=== PATIENT | male | born 1945 | race Caucasian/White ===

== ENCOUNTER → 2017-10-18 | Outpatient (CLI) | payer OTHER ==
[~2017-10-18] MED LIST: AMIT25TA9 PO; ASPI81TA40 PO; ATEN25TA PO; ATOR40TA71 PO; BACL10TA PO; FISH1CAP50 PO; HYDR25TA PO; LISI-613 PO; PSYL1PAC11 PO; TRAM50TA2 PO
== END | disposition home or self-care (01) ==
LOC: OIH 11:12
PROVIDERS: ATTEND Internal Medicine
DX: S60.221A Contusion of right hand, initial encounter (principal); X58.XXXA Exposure to other specified factors, initial encounter; Y93.89 Activity, other specified; Y92.89 Other specified places as the place of occurrence of the external cause; Y99.8 Other external cause status
CPT/HCPCS: 73130

== ENCOUNTER → 2018-03-07 | Outpatient (CLI) | payer OTHER ==
[~2018-03-07] MED LIST changes: +GADOBENATE DIMEGLUMINE 20 ML IV ONE
== END | disposition home or self-care (01) ==
LOC: RAH 08:31
PROVIDERS: ATTEND Podiatrist
DX: S86.112A Strain of other muscle(s) and tendon(s) of posterior muscle group at lower leg level, left leg, initial encounter (principal); M76.822 Posterior tibial tendinitis, left leg; X58.XXXA Exposure to other specified factors, initial encounter; Y93.89 Activity, other specified; Y92.89 Other specified places as the place of occurrence of the external cause; Y99.8 Other external cause status
CPT/HCPCS: 73723; A9577

== ENCOUNTER → 2018-07-30 | Outpatient (CLI) | payer OTHER ==
[~2018-07-30] MED LIST changes: -GADOBENATE DIMEGLUMINE 20 ML IV ONE
== END | disposition home or self-care (01) ==
LOC: RAH 14:50
PROVIDERS: ATTEND Internal Medicine
DX: Z01.818 Encounter for other preprocedural examination (principal)
CPT/HCPCS: 71046

== ENCOUNTER → 2018-09-04 | Outpatient (CLI) | payer OTHER | END | disposition home or self-care (01) | LOC: RAH 09:37 | PROVIDERS: ATTEND Podiatrist | DX: M87.375 Other secondary osteonecrosis, left foot (principal) | CPT/HCPCS: 73610 ==

== ENCOUNTER → 2018-10-28 | Outpatient (CLI) | payer OTHER | END | disposition home or self-care (01) | LOC: RAH 14:55 | PROVIDERS: ATTEND Internal Medicine | DX: M17.11 Unilateral primary osteoarthritis, right knee (principal); M85.88 Other specified disorders of bone density and structure, other site | CPT/HCPCS: 73562 ==

== ENCOUNTER → 2018-11-06 | Outpatient (CLI) | payer OTHER | END | disposition home or self-care (01) | LOC: RAH 15:18 | PROVIDERS: ATTEND Podiatrist | DX: M25.472 Effusion, left ankle (principal); M87.375 Other secondary osteonecrosis, left foot | CPT/HCPCS: 73610 ==

== ENCOUNTER 2020-02-24 07:48 | Observation (INO) | payer OTHER ==
[~2020-02-24] VITALS: Ht 182.9 cm; Wt 113.4 kg
[2020-02-24] MEDS ORDERED: ASPIRIN 81MG TAB.CHEW ONE (08:03)
[2020-02-24 08:19] LABS: EOSINOPHILS % (AUTO) 2.6 % (0.0-8.0); HEMATOCRIT 43.4 % (42-54); LYMPHOCYTES % (AUTO) 26.8 % (21.0-51.0); MEAN CORPUSCULAR HEMOGLOBIN 30.1 pg (27.0-33.0); MEAN CORPUSCULAR HGB CONC 34.1 g/dL (32.0-36.0); MEAN CORPUSCULAR VOLUME 88.2 fL (79-99); MONOCYTES % (AUTO) 8.2 % (3.0-13.0); NEUTROPHILS % (AUTO) 60.7 % (40.0-77.0); PLATELET COUNT (AUTO) 255 K/uL (130-400); RED BLOOD CELL COUNT(AUTO) 4.92 MIL/uL (4.50-6.20); RED CELL DISTRIBUTION WIDTH 13.2 % (11.0-15.5); WHITE BLOOD COUNT (AUTO) 9.1 K/uL (4.8-10.8)
[2020-02-24 08:31] LABS: CREATININE 0.9 mg/dL (0.5-1.5); POTASSIUM 4.8 mmol/L (3.5-5.1)
[2020-02-24 08:32] LABS: INR 0.96 (0.85-1.15); PARTIAL THROMBOPLASTIN TIME 26.4 SEC (26.3-35.5); PROTHROMBIN TIME 10.4 SEC (9.6-11.6)
[2020-02-24 08:37] LABS: ALBUMIN 3.9 g/dL (3.5-5.0); BILIRUBIN,TOTAL 0.7 mg/dL (0.2-1.0); TOTAL PROTEIN, SERUM 7.6 g/dL (6.0-8.3)
[2020-02-24] MEDS ORDERED: ONDANSETRON HCL 4 MG/2 ML VIAL IVP PRN (10:00)
[2020-02-24 13:10] VITALS: BP 130/64
[2020-02-24] MEDS ORDERED: TRAZ-187 PO (14:22)
[2020-02-24 15:20] VITALS: BP_SYST 126; BP_SYST 129; BP_DIAS 71; BP_DIAS 74
[2020-02-24 16:28] LABS: CREATINE KINASE, TOTAL 82 U/L (21-232); MYOGLOBIN 68 ng/mL (10-92); TROPONIN I < 0.04 ng/mL (0.00-0.06)
[2020-02-24] MEDS: SODIUM CHLORIDE 0.9% 1000ML 1,000 ML IV SCH (17:49)
[2020-02-24 18:19] LABS: AMPHET/METH SCREEN,URINE NEGATIVE (NEGATIVE); BARBITURATE SCREEN, URINE NEGATIVE (NEGATIVE); BENZODIAZEPINES SCREEN,URINE NEGATIVE (NEGATIVE); CANNABINOID SCREEN,URINE NEGATIVE (NEGATIVE); COCAINE SCREEN,URINE NEGATIVE (NEGATIVE); OPIATE SCREEN,URINE NEGATIVE (NEGATIVE); PHENCYCLIDINE SCREEN,URINE NEGATIVE (NEGATIVE)
[2020-02-24 19:36] VITALS: BP 132/76
[2020-02-24] MEDS: FAMOTIDINE 20MG TAB 20 MG TAB PO SCH (20:50)
[2020-02-24] MEDS ORDERED: METOPROLOL TARTRATE 25 MG TAB PO SCH (21:00)
[2020-02-24] MEDS ORDERED: ATORVASTATIN CALCIUM 20 MG TABLET PO SCH (21:00)
[2020-02-24 23:29] VITALS: BP 140/77
[2020-02-25] MEDS: SODIUM CHLORIDE 0.9% 1000ML 1,000 ML IV SCH (02:54)
[2020-02-25 03:45] VITALS: BP 133/83
[2020-02-25 03:49] LABS: BASOPHILS % (AUTO) 0.7 % (0.0-5.0); EOSINOPHILS % (AUTO) 3.7 % (0.0-8.0); HEMATOCRIT 39.4 % (42-54); MEAN CORPUSCULAR HEMOGLOBIN 29.9 pg (27.0-33.0); MEAN CORPUSCULAR HGB CONC 33.5 g/dL (32.0-36.0); MEAN CORPUSCULAR VOLUME 89.1 fL (79-99); MONOCYTES % (AUTO) 11.4 % (3.0-13.0); NEUTROPHILS % (AUTO) 55.8 % (40.0-77.0); PLATELET COUNT (AUTO) 207 K/uL (130-400); RED BLOOD CELL COUNT(AUTO) 4.42 MIL/uL (4.50-6.20); RED CELL DISTRIBUTION WIDTH 13.2 % (11.0-15.5); WHITE BLOOD COUNT (AUTO) 8.1 K/uL (4.8-10.8)
[2020-02-25 04:00] LABS: CREATININE 0.9 mg/dL (0.5-1.5); POTASSIUM 4.2 mmol/L (3.5-5.1)
[2020-02-25] MEDS: ACETAMINOPHEN 325 MG TAB PO PRN ×2 (05:05→12:07)
[2020-02-25 07:43] VITALS: BP 144/80
[2020-02-25] MEDS: FAMOTIDINE 20MG TAB 20 MG TAB PO SCH (08:32)
[2020-02-25] MEDS ORDERED: ASPIRIN 81MG TAB.CHEW PO SCH (09:00)
[2020-02-25] MEDS ORDERED: ENOXAPARIN SODIUM 30 MG/0.3 ML SQ SCH (09:00)
[2020-02-25 11:40] VITALS: BP 152/80
[2020-02-25] MEDS ORDERED: TRAZODONE HCL 100 MG TABLET PO SCH (11:45)
[2020-02-25] MEDS ORDERED: ATEN25TA PO (11:59)
[2020-02-25] MEDS ORDERED: FISH OIL 1000 MG/CAP PO SCH (12:03)
[2020-02-25] MEDS ORDERED: HYDROCHLOROTHIAZIDE 25 MG TABLET PO SCH (12:15)
[2020-02-25] MEDS ORDERED: ATENOLOL 25 MG TABLET PO SCH ×2 (12:15→21:00)
[2020-02-25] MEDS ORDERED: LISINOPRIL 20 MG TABLET PO SCH (12:15)
[2020-02-25 12:49] VITALS: BP 152/80
--- NOTE | 2020-02-25 15:30 | NUR ---
NOTE CAME IN WITH DX SYNCOPE. STATES HE FELT DIZZY DURING THE NIGHT AT HOME BUT HE NEVER PASSED OUT AND STARTED IF HE HAD STOMACH ISSUES THEN FELT LIKE IF HE WAS PASSING OUT THEN IMMEDIATELY RECOVERED AFTER LAYING DOWN IN BED. EKG, CE CAROTID STUDIES TSH HAVE ALL BEEN NEGATIVE AND HE IS BEING DISCHARGED TO FOLLOW UP WITH DR CAPPS SUNDAY PREVIOUSLY SCHEDULED AND HAVE HOLTER MONITOR APPLIED AT HEART CLINIC. PATIENT WILL ALSO FOLLOW UP WITH DR WALDEN. REFER TO DC SUMMARY FOR DETAILS. STABLE UPON LEAVING.
[2020-02-25] MEDS ORDERED: ATORVASTATIN CALCIUM 40 MG TABLET PO SCH (21:00)
[2020-02-26] MEDS ORDERED: ASPIRIN 81 MG EC TAB PO SCH (09:00)
[2020-02-26] MEDS ORDERED: PSYLLIUM SEED 1 EACH PACKET PO SCH (09:00)
[2020-02-26] MEDS ORDERED: LISINOPRIL 20 MG TABLET PO SCH (09:00)
[2020-02-27] MEDS ORDERED: HYDROCHLOROTHIAZIDE 25 MG TABLET PO SCH (09:00)
== END 2020-02-25 16:00 | disposition home or self-care (01) ==
LOC: EDH 07:48 → EDHIP 09:51 → 2CH 13:04 → 4CH 13:07
PROVIDERS: ADMIT Internal Medicine; ATTEND Internal Medicine
DX: R55 Syncope and collapse (principal); R07.89 Other chest pain; E87.1 Hypo-osmolality and hyponatremia; I10 Essential (primary) hypertension; E78.5 Hyperlipidemia, unspecified; K21.9 Gastro-esophageal reflux disease without esophagitis; Z87.891 Personal history of nicotine dependence; Z79.82 Long term (current) use of aspirin; Z79.899 Other long term (current) drug therapy; W06.XXXA Fall from bed, initial encounter; Y93.89 Activity, other specified; Y92.003 Bedroom of unspecified non-institutional (private) residence as the place of occurrence of the external cause
CPT/HCPCS: 36415 ×2; 71045; 80048; 80053; 80305; 82550 ×2; 83874; 84443; 84484 ×2; 85025 ×2; 85610; 85730; 93005 ×2; 93306; 93356; 93880; 96360; 96361 ×2; 96372; 99285; G0378 ×30; G0480; J1650

== ENCOUNTER → 2020-03-18 | Outpatient (CLI) | payer OTHER ==
[~2020-03-18] MED LIST changes: -AMIT25TA9 PO; -BACL10TA PO; +REGADENOSON 0.4 MG/5 ML PF SYG IVP SCH; -TRAM50TA2 PO; +TRAZ-187 PO
== END | disposition home or self-care (01) ==
LOC: SHCH 08:30
PROVIDERS: ATTEND Internal Medicine Cardiovascular Disease
DX: I10 Essential (primary) hypertension (principal); R94.31 Abnormal electrocardiogram [ECG] [EKG]
CPT/HCPCS: 78452; 93017; A9500 ×2; J2785; 96374

== ENCOUNTER 2021-01-02 14:40 | Emergency (ER) | payer MEDICARE, OTHER ==
[~2021-01-02 14:40] MED LIST changes: -LISI-613 PO; +LISI20TA24 PO; -REGADENOSON 0.4 MG/5 ML PF SYG IVP SCH
[2021-01-02 15:19] LABS: BASOPHILS % (AUTO) 0.6 % (0.0-5.0); EOSINOPHILS % (AUTO) 1.1 % (0.0-8.0); HEMATOCRIT 39.9 % (42-54); LYMPHOCYTES % (AUTO) 24.2 % (21.0-51.0); MEAN CORPUSCULAR HEMOGLOBIN 30.8 pg (27.0-33.0); MEAN CORPUSCULAR HGB CONC 34.3 g/dL (32.0-36.0); MEAN CORPUSCULAR VOLUME 89.7 fL (79-99); MONOCYTES % (AUTO) 9.8 % (3.0-13.0); NEUTROPHILS % (AUTO) 63.8 % (40.0-77.0); PLATELET COUNT (AUTO) 209 K/uL (130-400); RED BLOOD CELL COUNT(AUTO) 4.45 MIL/uL (4.50-6.20); RED CELL DISTRIBUTION WIDTH 12.6 % (11.0-15.5); WHITE BLOOD COUNT (AUTO) 10.8 K/uL (4.8-10.8)
[2021-01-02 15:34] LABS: CREATININE 0.9 mg/dL (0.5-1.5); POTASSIUM 4.1 mmol/L (3.5-5.1)
[2021-01-02 15:37] LABS: PROTHROMBIN TIME 10.9 SEC (9.6-11.6)
[2021-01-02 15:38] LABS: PARTIAL THROMBOPLASTIN TIME 29.3 SEC (26.3-35.5)
[2021-01-02 15:39] LABS: ALBUMIN 3.4 g/dL (3.5-5.0); BILIRUBIN,TOTAL 0.4 mg/dL (0.2-1.0); TOTAL PROTEIN, SERUM 7.3 g/dL (6.0-8.3)
[2021-01-02] MEDS ORDERED: 0.9%NACL 1000ML 1,000 ML IV ONE (15:54)
[2021-01-02 17:49] LABS: APPEARANCE,URINE Clear (CLEAR); BILIRUBIN,URINE Negative (NEGATIVE); COLOR,URINE Yellow (YELLOW); GLUCOSE, URINE (UA) Negative (NEGATIVE); KETONES,URINE Negative (NEGATIVE); LEUKOCYTE ESTERASE ,URINE Negative (NEGATIVE); NITRATE,URINE Negative (NEGATIVE); OCCULT BLOOD,URINE Negative (NEGATIVE); PH,URINE 7.5 (5.0-8.0); PROTEIN,URINE Negative (NEGATIVE); UROBILINOGEN,URINE 0.2 mg/dL (0.2-1.0)
== END 2021-01-02 19:51 | disposition home or self-care (01) ==
LOC: EDH 14:40
DX: R60.0 Localized edema (principal); E87.1 Hypo-osmolality and hyponatremia; I10 Essential (primary) hypertension; E78.5 Hyperlipidemia, unspecified; K21.9 Gastro-esophageal reflux disease without esophagitis; Z87.891 Personal history of nicotine dependence
CPT/HCPCS: 36415; 71045; 73600; 80053; 81003; 84484; 85025; 85610; 85730; 93005; 93971; 96360; 96361; 99285; J7030

== ENCOUNTER 2021-02-23 17:08 | Emergency (ER) | payer MEDICARE | END 2021-02-23 19:37 | disposition home or self-care (01) | LOC: EDH 17:08 | DX: R51.9 Headache, unspecified (principal); I10 Essential (primary) hypertension; E78.5 Hyperlipidemia, unspecified; K21.9 Gastro-esophageal reflux disease without esophagitis; Z98.890 Other specified postprocedural states | CPT/HCPCS: 70450; 72125 ==

== ENCOUNTER → 2021-12-15 | Outpatient (CLI) | payer MEDICARE | END | disposition home or self-care (01) | LOC: SHCH 10:36 | PROVIDERS: ATTEND Internal Medicine Cardiovascular Disease | DX: I35.0 Nonrheumatic aortic (valve) stenosis (principal); I51.7 Cardiomegaly | CPT/HCPCS: 93306 ==

== ENCOUNTER → 2022-07-11 | Outpatient (CLI) | payer MEDICARE | END | disposition home or self-care (01) | LOC: RAH 14:24 | PROVIDERS: ATTEND Internal Medicine | DX: M19.041 Primary osteoarthritis, right hand (principal); M25.541 Pain in joints of right hand | CPT/HCPCS: 73130 ==

== ENCOUNTER 2023-01-26 09:19 | Emergency (ER) | payer MEDICARE ==
[~2023-01-26] VITALS: Ht 182.9 cm; Wt 115.7 kg
[2023-01-26] MEDS ORDERED: ACETAMINOPHEN 500 MG TABLET PO STA (09:33)
[2023-01-26 11:20] VITALS: BP 132/84
[2023-01-26] MEDS ORDERED: LORA10TA7 PO (11:47)
[2023-01-26] MEDS ORDERED: AMOX500C2 PO (11:47)
[2023-01-26] MEDS ORDERED: DICL20GE TP (11:47)
== END 2023-01-26 12:03 | disposition home or self-care (01) ==
LOC: EDH 09:19
DX: G44.209 Tension-type headache, unspecified, not intractable (principal); J32.9 Chronic sinusitis, unspecified; I10 Essential (primary) hypertension; E78.00 Pure hypercholesterolemia, unspecified; Z90.49 Acquired absence of other specified parts of digestive tract; Z98.890 Other specified postprocedural states; Z79.899 Other long term (current) drug therapy; Z79.82 Long term (current) use of aspirin
CPT/HCPCS: 70450; 72125

== ENCOUNTER → 2023-11-16 | Outpatient (CLI) | payer MEDICARE ==
[~2023-11-16] MED LIST changes: +AMOX500C2 PO; +DICL20GE TP; +LORA10TA7 PO
== END | disposition home or self-care (01) ==
LOC: RAH 14:34
PROVIDERS: ATTEND Internal Medicine
DX: M47.816 Spondylosis without myelopathy or radiculopathy, lumbar region (principal); M54.50 Low back pain, unspecified; M25.551 Pain in right hip; M25.552 Pain in left hip; M48.061 Spinal stenosis, lumbar region without neurogenic claudication
CPT/HCPCS: 72100; 73502